=== PATIENT | female | born 1965 | race Caucasian/White ===

== ENCOUNTER 2021-07-07 19:59 | Emergency (ER) | payer OTHER ==
[~2021-07-07] VITALS: Ht 162.6 cm; Wt 72.6 kg
[2021-07-07] MEDS ORDERED: FURO20 (20:32)
[2021-07-07] MEDS ORDERED: AMLODIPINE-OLM1 EAC2 (20:32)
[2021-07-07 20:34] LABS: BASOPHILS ABSOLUTE AUTO 0.06 K/mm3 (0.00-0.23); BASOPHILS PERCENT AUTO 1 % (0-2); EOSINOPHILS PERCENT AUTO 0 % (0-6); Hematocrit 41.7 % (33.0-51.0); Hemoglobin 14.8 g/dL (11.5-16.0); IMMATURE GRAN ABSOLUTE AUTO 0.08 K/mm3 (0.00-0.10); IMMATURE GRAN PERCENT AUTO 1 % (0-1); LYMPHOCYTES ABSOLUTE AUTO 1.21 K/mm3 (0.84-5.20); LYMPHOCYTES PERCENT AUTO 10 % (21-46); MONOCYTES ABSOLUTE AUTO 0.91 K/mm3 (0.16-1.47); MONOCYTES PERCENT AUTO 8 % (4-13); Mean Corpuscular HGB 33.3 pg (26.0-34.0); Mean Corpuscular HGB Conc 35.5 g/dL (31.5-36.5); Mean Corpuscular Volume 94 fL (80-100); Mean Platelet Volume 10.1 fL (9.1-12.4); NEUTROPHILS ABSOLUTE AUTO 9.79 K/mm3 (1.96-9.15); NEUTROPHILS PERCENT AUTO 81 % (41-73); Platelet Count 155 K/mm3 (150-400); RDW Coefficient Variation 12.6 % (11.7-14.2); RDW Standard Deviation 43.8 fL (35.1-46.3); Red Blood Cell Count 4.45 M/mm3 (3.80-5.20); White Blood Cell Count 12.05 K/mm3 (4.00-11.30)
[2021-07-07 21:02] LABS: Ethanol (Alcohol), Blood, Med <3 mg/dL; Magnesium, Blood 1.8 mg/dL (1.6-2.4)
[2021-07-07 21:03] LABS: Alanine Aminotransfer (ALT/SGP 199 U/L (12-78); Albumin, Blood 4.4 g/dL (3.4-5.0); Albumin/Globulin Ratio 1.2 (0.8-1.8); Alk Phos 102 U/L (50-136); Anion Gap 19 mmol/L (6-16); Aspartate Aminotrans (AST/SGOT 275 U/L (12-37); Bilirubin, Total 1.1 mg/dL (0.1-1.0); Blood Urea Nitrogen 13 mg/dL (8-24); Bun/Creatinine Ratio 23.2 (12.0-20.0); CO2, Blood 17 mmol/L (21-32); Calcium, Blood 8.7 mg/dL (8.5-10.1); Chloride, Blood 101 mmol/L (98-108); Creatinine, Blood 0.56 mg/dL (0.40-1.00); Globulin, Blood 3.8 g/dL (2.2-4.0); Glomerular Filtration Rate >60 (60-); Glucose, Blood 221 mg/dL (70-99); Potassium, Blood 3.3 mmol/L (3.5-5.5); Sodium, Blood 137 mmol/L (136-145); Total Protein, Blood 8.2 g/dL (6.4-8.2)
[2021-07-07 21:32] LABS: Influenza A, PCR NEGATIVE (NEGATIVE); Influenza B, PCR NEGATIVE (NEGATIVE); Resp Syncytial Virus, PCR NEGATIVE (NEGATIVE); SARS-Cov-2 (COVID-19) PCR, MMC NEGATIVE (NEGATIVE)
[2021-07-07 22:29] LABS: International Normalized Ratio 1.08; Prothrombin Time Results 11.3 Sec (9.7-11.5)
[2021-07-08 00:10] LABS: U Amphetamine Screen Not Detected; U Barbituate Screen Not Detected; U Benzodiazapine Screen Not Detected; U Buprenorphine Screen Not Detected; U Cannabinoids Screen Not Detected; U Cocaine Screen Not Detected; U Methadone Screen Not Detected; U Methamphetamine Screen Not Detected; U Opiates Screen Not Detected; U Oxycodone Screen Not Detected; U Phencyclidine Screen Not Detected; U Propoxyphene Screen Not Detected
== END 2021-07-07 23:26 | disposition short-term general hospital (02) ==
LOC: ER 19:59
PROVIDERS: Emergency Medicine
DX: I60.9 Nontraumatic subarachnoid hemorrhage, unspecified (principal); E87.2 Acidosis; R73.9 Hyperglycemia, unspecified; I10 Essential (primary) hypertension; F17.200 Nicotine dependence, unspecified, uncomplicated; Z88.1 Allergy status to other antibiotic agents; Z79.899 Other long term (current) drug therapy
CPT/HCPCS: 0241U; 70450; 80053; 82947; 83735; 85025; 85610; 85730; 93005; 93010; 96365; 96367; 96375; 99285-25; A9270; G0480; J1200; J1953; J2060; J2765; J3411; J3475; J7042

== ENCOUNTER 2021-08-02 11:56 | Inpatient (IN) | payer OTHER ==
[~2021-08-02] VITALS: Ht 160 cm; Wt 71.4 kg
[~2021-08-02 11:56] MED LIST: AMLODIPINE-OLM1 EAC2 PO; FURO20
[2021-08-02 12:34] LABS: Hematocrit 54.2 % (33.0-51.0); Mean Corpuscular HGB 31.3 pg (26.0-34.0); Mean Corpuscular HGB Conc 31.4 g/dL (31.5-36.5); Mean Corpuscular Volume 100 fL (80-100); Mean Platelet Volume 9.7 fL (9.1-12.4); Platelet Count 450 K/mm3 (150-400); RDW Coefficient Variation 12.3 % (11.7-14.2); RDW Standard Deviation 45.8 fL (35.1-46.3); Red Blood Cell Count 5.44 M/mm3 (3.80-5.20); White Blood Cell Count 22.75 K/mm3 (4.00-11.30)
[2021-08-02 12:56] LABS: Albumin, Blood 4.9 g/dL (3.4-5.0); Bilirubin, Total 0.8 mg/dL (0.1-1.0); Bun/Creatinine Ratio 15.2 (12.0-20.0); Calcium, Blood 9.8 mg/dL (8.5-10.1); Creatinine, Blood 1.05 mg/dL (0.40-1.00); Globulin, Blood 4.8 g/dL (2.2-4.0); Potassium, Blood 4.6 mmol/L (3.5-5.5); Total Protein, Blood 9.7 g/dL (6.4-8.2)
[2021-08-02 12:57] LABS: BAND PERCENT MAN 2 % (0-8); BASOPHILS PERCENT MAN 0 % (0-2); EOSINOPHILS PERCENT MAN 0 % (0-6); LYMPHOCYTES ABSOLUTE MAN 1.36 K/mm3 (0.84-5.20); LYMPHOCYTES PERCENT MAN 6 % (21-46); METAMYELOCYTE ABSOLUTE MAN 0.22 K/mm3 (0.00-0.00); METAMYELOCYTE PERCENT MAN 1 % (0-0); MONOCYTES PERCENT MAN 11 % (4-13); NEUTROPHILS ABSOLUTE MAN 18.65 K/mm3 (1.96-9.15); SEG NEUTROPHILS PERCENT MAN 80 % (41-73); TOTAL CELLS COUNTED 100
[2021-08-02 13:31] LABS: Source, Urine Clean Catch
[2021-08-02] MEDS ORDERED: KEPPRA250 M1 PO (13:32)
[2021-08-02] MEDS ORDERED: Amitriptyline H10 MG PO (13:33)
[2021-08-02 13:34] LABS: Bilirubin, Urine Neg (Neg); Blood, Urine 1+ (Neg); Glucose Qualitative, Urine Neg (Neg); Ketones, Urine 4+ (Neg); Leukocyte Esterase, Urine Neg (Neg); Nitrite, Urine Neg (Neg); Protein, Urine 3+ (Neg); Urobilinogen, Urine NORM (Normal)
[2021-08-02 13:45] LABS: Appearance, Urine Clear (Clear); Bacteria Rare /hpf; Color, Urine Pale Yellow (P-Yellow); Squamous Epithelial Cells Rare /hpf (Few); White Blood Cells, Urine 0-2 /hpf (0-5)
[2021-08-02 13:46] LABS: Granular Casts 0-2 /lpf (0); Hyaline Casts 0-2 /lpf (0-2); Mucus Light (0-Heavy)
[2021-08-02 13:51] LABS: Base Excess Venous -18.4 mmol/L; Bicarbonate Venous 12.3 mmol/L (24.0-30.0); PCO2 Venous 28.6 mmHg (38-42); PO2 Venous 55.3 mmHg (38-42)
[2021-08-02 13:54] LABS: pH Blood Venous 7.16 (7.34-7.37)
[2021-08-02 14:04] LABS: Magnesium, Blood 2.7 mg/dL (1.6-2.4)
[2021-08-02 14:07] LABS: Phosphorus, Blood 7.8 mg/dL (2.5-4.9)
[2021-08-02 15:42] LABS: Influenza A, PCR NEGATIVE (NEGATIVE); Influenza B, PCR NEGATIVE (NEGATIVE); Resp Syncytial Virus, PCR NEGATIVE (NEGATIVE); SARS-Cov-2 (COVID-19) PCR, MMC NEGATIVE (NEGATIVE)
[2021-08-02 15:59] LABS: Anion Gap 19 mmol/L (6-16); Blood Urea Nitrogen 15 mg/dL (8-24); Bun/Creatinine Ratio 19.6 (12.0-20.0); CO2, Blood 12 mmol/L (21-32); Calcium, Blood 8.2 mg/dL (8.5-10.1); Chloride, Blood 106 mmol/L (98-108); Creatinine, Blood 0.76 mg/dL (0.40-1.00); Glomerular Filtration Rate >60 (60-); Glucose, Blood 221 mg/dL (70-99); Potassium, Blood 4.1 mmol/L (3.5-5.5); Sodium, Blood 137 mmol/L (136-145)
--- NOTE | 2021-08-02 19:25 | NUR ---
ICU ADMISSION / SHIFT SUMMARY: REPORT RECEIVED FROM ZULAY Luna RN. PT ARRIVED TO ICU-12 AT APPROX 1740. ON ARRIVAL, THE PT IS A&O, PLEASANT & COOPERATIVE. SHE IS HAVING SOME RESTLESS LEGS THAT HAS BEEN OCCURING SINCE RECEIVING PHENERGAN IN THE ED. LS ARE CLEAR T/O, PT ON RA W/ O2 SATS > 92%. MONITOR SHOWS ST W/ HR 100s, BP STABLE. PT NPO EXCEPT SMALL AMNTS OF ICE CHIPS WHICH SHE IS TOLERATING WELL. HAS C/O INDIGESTION, PANTOPRAZOLE STARTED PER EMAR BY DR SIMONS RELATED TO THIS. PT VOIDS URINE W/O DIFFICULTY. SKIN CONDITION OVERALL INTACT, PT IS ABLE TO REPOSITION SELF IN BED W/O DIFFICULTY FOR COMFORT. WILL CONTINUE TO MONITOR & REPORT OFF TO ONCOMING RN.
[2021-08-02 19:44] LABS: Anion Gap 13 mmol/L (6-16); Blood Urea Nitrogen 11 mg/dL (8-24); Bun/Creatinine Ratio 18.7 (12.0-20.0); CO2, Blood 15 mmol/L (21-32); Calcium, Blood 7.9 mg/dL (8.5-10.1); Chloride, Blood 108 mmol/L (98-108); Creatinine, Blood 0.59 mg/dL (0.40-1.00); Glomerular Filtration Rate >60 (60-); Glucose, Blood 216 mg/dL (70-99); Potassium, Blood 4.3 mmol/L (3.5-5.5); Sodium, Blood 136 mmol/L (136-145)
[2021-08-03 00:58] LABS: Anion Gap 9 mmol/L (6-16); Blood Urea Nitrogen 9 mg/dL (8-24); Bun/Creatinine Ratio 16.5 (12.0-20.0); CO2, Blood 22 mmol/L (21-32); Calcium, Blood 8.6 mg/dL (8.5-10.1); Chloride, Blood 109 mmol/L (98-108); Creatinine, Blood 0.55 mg/dL (0.40-1.00); Glomerular Filtration Rate >60 (60-); Glucose, Blood 187 mg/dL (70-99); Potassium, Blood 3.8 mmol/L (3.5-5.5); Sodium, Blood 140 mmol/L (136-145)
[2021-08-03 04:13] LABS: BASOPHILS ABSOLUTE AUTO 0.04 K/mm3 (0.00-0.23); BASOPHILS PERCENT AUTO 0 % (0-2); EOSINOPHILS ABSOLUTE AUTO 0.01 K/mm3 (0.00-0.68); EOSINOPHILS PERCENT AUTO 0 % (0-6); Hematocrit 37.2 % (33.0-51.0); Hemoglobin 13.1 g/dL (11.5-16.0); IMMATURE GRAN ABSOLUTE AUTO 0.03 K/mm3 (0.00-0.10); IMMATURE GRAN PERCENT AUTO 0 % (0-1); LYMPHOCYTES ABSOLUTE AUTO 1.41 K/mm3 (0.84-5.20); LYMPHOCYTES PERCENT AUTO 16 % (21-46); MONOCYTES ABSOLUTE AUTO 0.75 K/mm3 (0.16-1.47); MONOCYTES PERCENT AUTO 8 % (4-13); Mean Corpuscular HGB 33.2 pg (26.0-34.0); Mean Corpuscular HGB Conc 35.2 g/dL (31.5-36.5); Mean Platelet Volume 9.7 fL (9.1-12.4); NEUTROPHILS ABSOLUTE AUTO 6.74 K/mm3 (1.96-9.15); NEUTROPHILS PERCENT AUTO 75 % (41-73); Platelet Count 235 K/mm3 (150-400); RDW Standard Deviation 41.7 fL (35.1-46.3); Red Blood Cell Count 3.95 M/mm3 (3.80-5.20); White Blood Cell Count 8.98 K/mm3 (4.00-11.30)
[2021-08-03 04:19] LABS: Mean Corpuscular Volume 94 fL (80-100)
[2021-08-03 04:29] LABS: Anion Gap 7 mmol/L (6-16); Blood Urea Nitrogen 7 mg/dL (8-24); Bun/Creatinine Ratio 14.5 (12.0-20.0); CO2, Blood 23 mmol/L (21-32); Calcium, Blood 8.7 mg/dL (8.5-10.1); Chloride, Blood 109 mmol/L (98-108); Creatinine, Blood 0.48 mg/dL (0.40-1.00); Glomerular Filtration Rate >60 (60-); Glucose, Blood 189 mg/dL (70-99); Potassium, Blood 3.4 mmol/L (3.5-5.5); Sodium, Blood 139 mmol/L (136-145)
--- NOTE | 2021-08-03 06:57 | NUR ---
SHIFT SUMMARY PATIENT STILL ON INSULIN @ 1 UNIT/HR AND D5 IN 1/2 NS @ 200ML/HR. POTASSIUM LEVELS LOW @ 3.4 THIS MORNING; 40MEQ KCL IV ORDERED AND FIRST BAG INF NOW. PATIENT REPOSITIONED SELF T/O SHIFT AND WAS A STAND BY TRANSFER/AMBULATE FROM BED TO TOILET. GAP AND CO2 IMPROVED ON LAB WORK DURING SHIFT. CALL MADE TO DR. WERNER WITH UPDATE. ORDERS GIVEN TO CONTINUE INSULIN GTT UNTIL ABLE TO TOLERATE PO DIET, THEN SWITCH TO INSULIN GLARGINE 35 UNITS SC. NURSE NOTIFY PLACED. PATIENT DID NOT TOLERATE PO DIET WELL, STILL EXPERIENCED INDIGESTION DESPITE PO TUMS. NO OTHER MAJOR CHANGES DURING SHIFT.
--- NOTE | 2021-08-03 08:00 | NUR ---
ASSUMED CARE: REPORT RECEIVED FROM DONNA Wyatt RN. ASSUMED CARE OF THIS PT AT APPROX 0700. ON ASSESSMENT, THE PT IS AWAKE, ORIENTED TO ALL. SHE IS PLEASANT & COOPERATIVE, UP FOR BRP INDEPENDENTLY W/ STEADY GAIT. INSULIN CONTINUES AT 1 UNIT/HR & D5 1/2 NS INFUSING AT 200 ML/HR. LS CLEAR T/O, PT ON RA W/ O2 SATS > 95%. MONITOR SHOWS SR W/ HR 80s, BP STABLE. PT TOLERATING SMALL AMNTS OF PO INTAKE OKAY, DOES HAVE SOME C/O INCREASED INDIGESTION AT TIMES WHEN EATING. VOIDS URINE W/O DIFFICULTY. SKIN CONDITION OVERALL INTACT & PT REPOSITIONS SELF W/O DIFFICULTY. WILL CONTINUE TO MONITOR & UPDATE NEEDED.
[2021-08-03 09:00] LABS: Anion Gap 11 mmol/L (6-16); Blood Urea Nitrogen 5 mg/dL (8-24); Bun/Creatinine Ratio 10.4 (12.0-20.0); CO2, Blood 21 mmol/L (21-32); Calcium, Blood 9.3 mg/dL (8.5-10.1); Chloride, Blood 110 mmol/L (98-108); Creatinine, Blood 0.48 mg/dL (0.40-1.00); Glomerular Filtration Rate >60 (60-); Glucose, Blood 160 mg/dL (70-99); Potassium, Blood 3.6 mmol/L (3.5-5.5); Sodium, Blood 142 mmol/L (136-145)
[2021-08-03 09:08] LABS: Magnesium, Blood 2.1 mg/dL (1.6-2.4)
--- NOTE | 2021-08-03 09:43 | NUR ---
DR SIMONS: CALL TO PROVIDER THIS AM TO DISCUSS REORDERING PT's HOME MEDICATIONS. ORDERS PLACED FOR PT's HOME DOSE KEPPRA & AMLODIPINE.
[2021-08-03 09:51] LABS: Phosphorus, Blood 0.4 mg/dL (2.5-4.9)
--- NOTE | 2021-08-03 18:39 | NUR ---
UPDATE / SHIFT SUMMARY: THE PT HAS VERBALIZED INTEREST IN LEARNING MORE ABOUT HER NEW DIABETES DX & HAS BEEN DOING SOME RESEARCH ON HER OWN. SEED ANALYST CONSULTATION ORDERED BY THIS RN & DIABETES/ INSULIN EDUCATION ADDED TO PT's DISCHARGE PAPERWORK FOR ANTICIPATED D/C HOME TOMORROW. THE PT HAS ALSO STATED WANTING TO DO HER OWN INSULIN INJECTION/ FINGERSTICK CBG TOMORROW AM FOR PRACTICE. ANESTHESIOLOGY RESIDENT CONSULT PLACED BY THIS RN FOR CASE MANAGEMENT TO ASSIST PT IN GETTING A GLUCOMETER AT TIME OF D/C. NO ACUTE CHANGES SINCE PRIOR UPDATES. THE PT REMAINS A&O TO ALL, PLEASANT & COOPERATIVE W/ CARE. STS FEELING "SO MUCH BETTER" THIS EVENING. PT's LS ARE CLEAR T/O, ON RA W/ O2 SATS > 95%. HEART MONITOR REMOVED PT IS MED NO TELE STATUS, BP STABLE. TOLERATING SMALL AMNTS OF PO INTAKE BETTER W/ LESS HEARTBURN NOTED. TUMS PER EMAR W/ DINNER. VOIDS URINE W/O DIFFICULTY. SKIN CONDITION OVERALL INTACT & PT AMBULATORY IN THE ROOM/ REPOSITIONS SELF IN BED W/O DIFFICULTY. WILL CONTINUE TO MONITOR & REPORT OFF TO ONCOMING RN.
[2021-08-04 04:41] LABS: BASOPHILS ABSOLUTE AUTO 0.05 K/mm3 (0.00-0.23); BASOPHILS PERCENT AUTO 1 % (0-2); EOSINOPHILS ABSOLUTE AUTO 0.04 K/mm3 (0.00-0.68); EOSINOPHILS PERCENT AUTO 1 % (0-6); Hematocrit 38.4 % (33.0-51.0); Hemoglobin 13.5 g/dL (11.5-16.0); IMMATURE GRAN ABSOLUTE AUTO 0.01 K/mm3 (0.00-0.10); IMMATURE GRAN PERCENT AUTO 0 % (0-1); LYMPHOCYTES ABSOLUTE AUTO 1.98 K/mm3 (0.84-5.20); LYMPHOCYTES PERCENT AUTO 32 % (21-46); MONOCYTES ABSOLUTE AUTO 0.41 K/mm3 (0.16-1.47); MONOCYTES PERCENT AUTO 7 % (4-13); Mean Corpuscular HGB 32.5 pg (26.0-34.0); Mean Corpuscular HGB Conc 35.2 g/dL (31.5-36.5); Mean Corpuscular Volume 93 fL (80-100); NEUTROPHILS ABSOLUTE AUTO 3.75 K/mm3 (1.96-9.15); NEUTROPHILS PERCENT AUTO 60 % (41-73); RDW Coefficient Variation 11.8 % (11.7-14.2); RDW Standard Deviation 40.4 fL (35.1-46.3); Red Blood Cell Count 4.15 M/mm3 (3.80-5.20); White Blood Cell Count 6.24 K/mm3 (4.00-11.30)
[2021-08-04 04:49] LABS: Mean Platelet Volume 10.1 fL (9.1-12.4); Platelet Count 188 K/mm3 (150-400)
[2021-08-04 05:03] LABS: Alk Phos 90 U/L (50-136); Anion Gap 7 mmol/L (6-16); Blood Urea Nitrogen 5 mg/dL (8-24); Bun/Creatinine Ratio 11.3 (12.0-20.0); CO2, Blood 27 mmol/L (21-32); Calcium, Blood 8.8 mg/dL (8.5-10.1); Chloride, Blood 109 mmol/L (98-108); Creatinine, Blood 0.44 mg/dL (0.40-1.00); Glomerular Filtration Rate >60 (60-); Glucose, Blood 143 mg/dL (70-99); Potassium, Blood 2.9 mmol/L (3.5-5.5); Sodium, Blood 143 mmol/L (136-145)
--- NOTE | 2021-08-04 07:35 | NUR ---
SHIFT SUMMARY PATIENT REMAINED INDEPENDENT T/O SHIFT. NA PHOS COMPLETED AND PHOS LEVEL IMPROVED. AM LABS SHOWED POTASSIUM OF 2.9; CALL MADE TO DR. HAUSER WITH NEW ORDERS FOR KCL 40MEQ PO AND KCL 40MEQ IV FOR A TOTAL OF 80 MEQ TO BE GIVEN. PATIENT HAS RED SWELLING ON ISABEL ABOVE AC DESPITE COMPRESSION AND ICE. NO SPREADING OF SWELLING OR REDNESS. PATIENT HAD AN INCREASE IN APPETITE AND DID NOT REQUIRE ANY TUMS FOR HEART BURN, ALTHOUGH HEART BURN PRESENT. NO OTHER MAJOR CHAGNES DURING SHIFT. REPORT COMPLETED WITH DAYSFERNANDEZFT RN.
--- NOTE | 2021-08-04 07:38 | NUR ---
report from pn rn, patient alert and oriented, no tele, k+ 2.9, replacement infusing, call light with in reach, wctm
[2021-08-04 11:31] LABS: Albumin, Blood 3.2 g/dL (3.4-5.0); Anion Gap 5 mmol/L (6-16); Blood Urea Nitrogen 4 mg/dL (8-24); CO2, Blood 25 mmol/L (21-32); Calcium, Blood 8.8 mg/dL (8.5-10.1); Chloride, Blood 111 mmol/L (98-108); Glomerular Filtration Rate >60 (60-); Glucose, Blood 150 mg/dL (70-99); Phosphorus, Blood 2.5 mg/dL (2.5-4.9); Sodium, Blood 141 mmol/L (136-145)
[2021-08-04 11:32] LABS: Potassium, Blood 5.3 mmol/L (3.5-5.5)
[2021-08-04] MEDS ORDERED: SEMGLEE (Y100 UNIT/2 SC (13:30)
[2021-08-04] MEDS ORDERED: ONDA4ODT MM (13:31)
[2021-08-04] MEDS ORDERED: PANT40 PO (13:32)
--- NOTE | 2021-08-04 14:00 | NUR ---
PATIENT DISCHARGING HOME, IVS REMOVED, EDUCATED ON DISCAHRGE INSTRUCTIONS AND RX, PATIENT STATED UNDERSTANDING, FRIEND PICKED PATIENT UP, DENIES N/V OR PAIN, ALERT AND ORIENTED X4, PATIENT STATUS IMPROVED FOR DISCHARGE
== END 2021-08-04 14:20 | disposition home or self-care (01) | DRG 638 ==
LOC: ER 11:56 → ICUW 16:48
PROVIDERS: Family Medicine; Physician Assistant; ADMIT Internal Medicine
DX: E11.10 Type 2 diabetes mellitus with ketoacidosis without coma (principal); R65.10 Systemic inflammatory response syndrome (SIRS) of non-infectious origin without acute organ dysfunction; Z79.4 Long term (current) use of insulin; K21.9 Gastro-esophageal reflux disease without esophagitis; Z20.822 Contact with and (suspected) exposure to COVID-19; E87.6 Hypokalemia; I10 Essential (primary) hypertension; R56.9 Unspecified convulsions; Z90.710 Acquired absence of both cervix and uterus; Z85.42 Personal history of malignant neoplasm of other parts of uterus; Z72.0 Tobacco use; Z60.2 Problems related to living alone
CPT/HCPCS: 0241U; 36415; 70450; 80048; 80053; 80069; 81001; 82010; 82803; 82947; 82985; 83036; 83690; 83735; 84075; 84100; 84132; 85025; 96365; 96375; 96376; 99285-25; A9270; C1751; C9113; G0378; J1650; J1815; J1953; J2405; J2550; J3480; J7030; J7042; J7050; J7060